=== PATIENT | female | born 1960 | race Caucasian/White ===

== ENCOUNTER 2020-05-25 06:28 | Day surgery (SDC) | payer BC ==
[2020-05-25] MEDS ORDERED: Propofol 200 MG/20 ML SDV IV ONE (06:29)
[2020-05-25] MEDS ORDERED: Glycopyrrolate 0.2 MG/ML 5 ML MDV IV ONE (06:29)
[2020-05-25] MEDS ORDERED: Neostigmine Methylsulfate 10 MG/10 ML MDV IVPUSH ONE (06:29)
[2020-05-25] MEDS ORDERED: Dexamethasone 4 MG/ML 5 ML MDV IVPUSH ONE (06:29)
[2020-05-25] MEDS ORDERED: Lactated Ringers 1,000 ML IV ONE (06:29)
[2020-05-25] MEDS ORDERED: diphenhydrAMINE 50 MG/ML SDV IVPUSH ONE (06:29)
[2020-05-25] MEDS ORDERED: Midazolam 1 MG/ML 2 ML SDV IV ONE (06:29)
[2020-05-25] MEDS ORDERED: Ketorolac 30 MG/ML SDV IVPUSH ONE (06:29)
[2020-05-25] MEDS ORDERED: Ondansetron 4 MG/2 ML SDV IVPUSH ONE (06:29)
[2020-05-25] MEDS ORDERED: Succinylcholine 200 MG/10 ML MDV IV ONE (06:29)
[2020-05-25] MEDS ORDERED: fentaNYL 100 MCG/2 ML SDV IV ONE (06:29)
[2020-05-25] MEDS ORDERED: Rocuronium 50 MG/5 ML Vial IV ONE (06:29)
[2020-05-25] MEDS ORDERED: Sodium Chloride 0.9% 10 ML Syringe FLUSH PRN (06:30)
[2020-05-25] MEDS: Lactated Ringers 1,000 ML IV SCH (07:41)
--- NOTE | 2020-05-25 08:16 | PCM.HPR ---
H & P Addendum review - H & P Addendum Review Date of Original H & P: 05/20/20 Date Reviewed: 05/25/20 Time Reviewed: 08:05 Patient was Examined: No Changes
--- NOTE | 2020-05-25 09:27 | PCM.OPNOTE ---
- General Post-Op/Procedure Note Date of Surgery/Procedure: 05/25/20 Operative Procedure(s): Lap Suzette Pre Op Diagnosis: Chronic Cholecystitis Post-Op Diagnosis: Same Anesthesia Technique: General ET Tube Primary Surgeon: Reji Us Anesthesia Provider: Joya Blackburn Pathology: Gallbladder EBL in mLs: 5 Complications: None Condition: Good
[2020-05-25] MEDS ORDERED: Morphine 2 MG/ML SYRINGE IVPUSH PRN (10:21)
[2020-05-25] MEDS: Acetaminophen/HYDROcodone 325-5 MG Tab PO PRN (10:39)
--- NOTE | 2020-05-26 13:31 | OR ---
DATE OF OPERATION: 05/25/2020 SURGEON: Reji Us MD PREOPERATIVE DIAGNOSIS: Chronic cholecystitis. POSTOPERATIVE DIAGNOSIS: Chronic cholecystitis. PROCEDURE: Laparoscopic cholecystectomy. ANESTHESIA: General. DESCRIPTION OF PROCEDURE: The patient was brought to the operating room, where general endotracheal anesthesia was performed. A time-out was performed. The abdomen was prepped with ChloraPrep and draped sterilely. An infraumbilical incision was made and extended through the fascia. There was omentum adherent to the area, and when I placed the Parmjit and introduced the camera, I was beneath the omentum, so I withdrew the camera and Parmjit and used finger blunt dissection to free up the omentum around the umbilical site. I then reintroduced the Parmjit and was able to visualize the upper abdomen. Three 5 mm ports were placed in the usual positions. I did use the epigastric port to look around the umbilical region and only omentum was adhesed to the area and that was not interfering with anything and was left in place. The gallbladder was grasped and retracted cephalad. Cystic duct and cystic artery were dissected free without difficulty. The cystic artery was doubly clipped proximally and once distally and then transected. The cystic duct was milked back into the gallbladder and then doubly clipped proximally and once distally and then transected. The gallbladder was removed from the bed of the liver without difficulty. The gallbladder was brought out through the umbilical incision site. A right upper quadrant was thoroughly irrigated and inspected and return was clear and hemostasis assured. Ports were removed under direct vision and remained hemostatic. Umbilical fascia was closed with [id number] 0 Vicryl. The skin was closed with 4-0 Vicryl subcuticular sutures. Benzoin and Steri- Strips were placed and Band-Aids applied. The patient tolerated the procedure well. Estimated blood loss less than 5 mL. She returned to Postanesthesia in stable condition. /[id number] CHRISSY/JON
== END 2020-05-25 11:51 | disposition home or self-care (01) ==
LOC: FB.SDS 06:28
PROVIDERS: ATTEND Surgery
DX: K81.1 Chronic cholecystitis (principal); K85.90 Acute pancreatitis without necrosis or infection, unspecified; I10 Essential (primary) hypertension; F32.9 Major depressive disorder, single episode, unspecified; E11.9 Type 2 diabetes mellitus without complications; F17.210 Nicotine dependence, cigarettes, uncomplicated; E78.00 Pure hypercholesterolemia, unspecified; J45.909 Unspecified asthma, uncomplicated; Z11.59 Encounter for screening for other viral diseases; Z79.84 Long term (current) use of oral hypoglycemic drugs; Z79.899 Other long term (current) drug therapy
CPT/HCPCS: 00790-QZ; 82962; 88304; A9270-GY; J0330; J1100; J1200; J1885; J2250; J2405; J2704; J2710; J3010; J3490; J7120; U0002